=== PATIENT | female | born 1965 ===

== ENCOUNTER 2022-01-10 15:13 | Emergency (ER) | payer MEDICAID, BC ==
[2022-01-10] MEDS ORDERED: cefTRIAXone 2 GM in Sodium Chloride 0.9% 100 ML IV ONE (20:18)
[2022-01-10] MEDS ORDERED: Acetaminophen 325 MG Tab PO ONE (20:23)
[2022-01-10] MEDS ORDERED: Clindamycin HCl 150 MG Cap PO SCH (20:30)
[2022-01-10] MEDS ORDERED: Ondansetron 4 MG/2 ML SDV IVPUSH ONE (21:02)
== END 2022-01-10 21:40 | disposition home or self-care (01) ==
LOC: JD.ED 15:13
DX: L03.213 Periorbital cellulitis (principal); Z79.899 Other long term (current) drug therapy
CPT/HCPCS: 36415; 70487; 80053; 84484; 85025; 87040; 93005; 96365; 96375; 99284; A9270; J0696; J2405

== ENCOUNTER 2023-02-19 14:11 | Emergency (ER) | payer MEDICAID ==
[2023-02-19] MEDS ORDERED: Sodium Chloride 0.9% 1,000 ML IV STA (14:58)
[2023-02-19] MEDS ORDERED: HYDROmorphone 0.5 MG/0.5 ML Syringe IVPUSH ONE ×2 (14:58→17:01)
[2023-02-19] MEDS ORDERED: Sodium Chloride 0.9% 10 ML Syringe FLUSH PRN (14:58)
[2023-02-19] MEDS ORDERED: Ondansetron 4 MG/2 ML SDV IVPUSH ONE (14:58)
[2023-02-19 15:41] LABS: BASOPHILS ABSOLUTE AUTO 0.02 K/mm3 (0.01-0.08); BASOPHILS PERCENT AUTO 0.3 % (0.1-1.2); EOSINOPHILS ABSOLUTE AUTO 0.04 K/mm3 (0.04-0.36); EOSINOPHILS PERCENT AUTO 0.6 (0.7-5.8); HEMATOCRIT 43.6 % (34.1-44.9); HEMOGLOBIN 14.6 gm/dl (11.2-15.7); IMMATURE GRAN ABSOLUTE AUTO 0.03 K/mm3 (0.00-0.10); IMMATURE GRAN PERCENT AUTO 0.4 % (<=1.0); LYMPHOCYTES ABSOLUTE AUTO 0.97 K/mm3 (1.18-3.74); LYMPHOCYTES PERCENT AUTO 14.2 % (19.3-51.7); MEAN CORPUSCULAR HEMOGLOBIN 32.4 pg (25.6-32.2); MEAN CORPUSCULAR HGB CONC 33.5 g/dl (32.2-35.5); MEAN CORPUSCULAR VOLUME 96.9 fl (79.4-94.8); MEAN PLATELET VOLUME 9.5 fl (9.4-12.3); MONOCYTES ABSOLUTE AUTO 0.42 K/mm3 (0.24-0.36); MONOCYTES PERCENT AUTO 6.1 % (4.7-12.5); NEUTROPHILS ABSOLUTE AUTO 5.35 K/mm3 (1.56-6.13); NEUTROPHILS PERCENT AUTO 78.4 % (34.0-71.1); PLATELET COUNT,PLT 249 K/mm3 (182-369); WHITE BLOOD CELL COUNT,WBC 6.83 K/mm3 (3.98-10.04)
[2023-02-19 15:58] LABS: A/G RATIO 1.1 (1-2); ALBUMIN 3.9 g/dl (3.4-5.0); ANION GAP 14.8 (5-15); BILIRUBIN TOTAL 0.5 mg/dL (0.2-1.0); CALCIUM 9.3 mg/dL (8.5-10.1); CREATININE 0.9 mg/dL (0.55-1.02); EST CRCL DRUG DOSING (CG) 62.8 mL/min; POTASSIUM,K 3.8 mEq/L (3.5-5.1); PROTEIN TOTAL,TP 7.6 g/dl (6.4-8.2)
[2023-02-19] MEDS ORDERED: Iopamidol 612 MG/ML 100 ML Bottle IVPUSH ONE (16:32)
[2023-02-19] MEDS ORDERED: Sodium Chloride 0.9% 10 ML Syringe FLUSH ONE (16:32)
[2023-02-19] MEDS ORDERED: Ketorolac 30 MG/ML SDV IVPUSH ONE (17:01)
[2023-02-19] MEDS ORDERED: cefTRIAXone 2 GM in Sodium Chloride 0.9% 100 ML IV ONE (17:49)
[2023-02-19] MEDS ORDERED: Amoxicillin/Clavulanate K 875-125 MG Tab PO ONE (18:15)
[2023-02-19] MEDS ORDERED: Acetaminophen/HYDROcodone 325-5 MG Tab PO ONE (18:15)
[2023-02-19] MEDS ORDERED: Ondansetron 4 MG Tab.DIS PO ONE (18:27)
== END 2023-02-19 18:42 | disposition home or self-care (01) ==
LOC: JD.ED 14:11
DX: J01.00 Acute maxillary sinusitis, unspecified (principal); Z79.899 Other long term (current) drug therapy
CPT/HCPCS: 36415; 70487; 80053; 85025; 86140; 96365; 96375; 96376; 99284; A9270; J0696; J1170; J1885; J2405; J3490; J7030; Q9967